=== PATIENT | female | born 1965 | race Caucasian/White ===

== ENCOUNTER 2020-08-10 06:13 | Observation (INO) ==
[~2020-08-10 06:13] MED LIST: Bacitracin 50,000 UNIT, Polymyxin B Sulfate 500,000 UNIT, Sodium Chloride IRRigation 1,... IR ONE; Vancomycin 1,500 MG/265 ML IV.SOLN IVPB ONE
[2020-08-10] MEDS ORDERED: Ondansetron 4 MG/2 ML VIAL IVP PRN ×2 (07:00→15:00)
[2020-08-10] MEDS ORDERED: *HR* HYDROcodone/Acet 5/325 mg TABLET PO PRN ×2 (07:00→15:00)
[2020-08-10] MEDS ORDERED: Neosporin OINT 15 GM TUBE TP ONE (07:06)
[2020-08-10] MEDS ORDERED: Lidocaine -MPF 2% 2 ML VIAL ONE (07:08)
[2020-08-10] MEDS ORDERED: *HR* Succinylcholine 200 MG/10 ML VIAL IVP ONE (07:08)
[2020-08-10] MEDS ORDERED: Ondansetron 4 MG/2 ML VIAL ONE (07:08)
[2020-08-10] MEDS ORDERED: Dexamethasone 4 MG/ML VIAL ONE (07:08)
[2020-08-10] MEDS ORDERED: Lidocaine -MPF 4% 5 ML AMPUL ONE (07:08)
[2020-08-10] MEDS ORDERED: *HR* Rocuronium Bromide 50 MG/5 ML VIAL ONE (07:08)
[2020-08-10] MEDS ORDERED: *HR* Propofol 200 MG/20 ML VIAL IVP ONE (07:08)
[2020-08-10] MEDS ORDERED: *HR* Midazolam HCl 2 MG/2 ML VIAL ONE (07:08)
[2020-08-10] MEDS ORDERED: *HR* FentaNYL (PF) 100 MCG/2 ML VIAL ONE (07:08)
[2020-08-10] MEDS ORDERED: *HR* Remifentanil 1 MG VIAL IVP ONE ×2 (07:11→11:19)
[2020-08-10] MEDS ORDERED: Heparin 1,000 UNITS/500 mL 500 ML ONE (07:26)
[2020-08-10] MEDS: Ringers Solution, Lactated 1,000 ML IVC SCH ×3 (07:38→14:25)
[2020-08-10] MEDS ORDERED: *HR* PHENYLEPHRINE 1,000 MCG/10 ML SYRINGE IVP ONE (08:39)
[2020-08-10] MEDS ORDERED: *HR* Phenylephrine 10 MG/ML VIAL ONE (08:51)
[2020-08-10] MEDS ORDERED: Famotidine 20 MG/2 ML VIAL ONE (10:23)
[2020-08-10] MEDS ORDERED: Acetaminophen IV 1,000 MG/100 ML BAG IVPB ONE ×2 (10:23→11:49)
[2020-08-10] MEDS: Morphine Sulfate 2 MG/ML SYRINGE IVP PRN ×4 (13:10→13:27)
[2020-08-10] MEDS ORDERED: *HR* FentaNYL (PF) 100 MCG/2 ML VIAL IVP PRN (13:32)
[2020-08-10] MEDS ORDERED: *HR* Midazolam HCl 2 MG/2 ML VIAL IVP PRN (13:38)
[2020-08-10] MEDS ORDERED: Ringers Solution, Lactated 1,000 ML IVC SCH (15:00)
[2020-08-10] MEDS ORDERED: Naloxone 0.4 MG/ML INJ IVP PRN (15:00)
[2020-08-10] MEDS: *HR* OxyCODONE Immed Rel 5 MG TABLET PO PRN ×2 (15:53→21:01)
[2020-08-10] MEDS: CeFAZolin 2 GM/120 ML BAG IVPB SCH ×2 (18:25→23:10)
[2020-08-11] MEDS: *HR* OxyCODONE Immed Rel 5 MG TABLET PO PRN ×4 (03:32→18:01)
[2020-08-11] MEDS: Acetaminophen 325 MG TABLET PO PRN ×2 (08:58→20:57)
[2020-08-11] MEDS ORDERED: diazePAM 2 MG TABLET PO PRN (11:49)
[2020-08-11] MEDS: HYDROcodone BIT/Homatropine 5 MG TABLET PO PRN (15:41)
[2020-08-12] MEDS: HYDROcodone BIT/Homatropine 5 MG TABLET PO PRN ×2 (00:43→07:57)
[2020-08-12] MEDS: Acetaminophen 325 MG TABLET PO PRN (03:49)
[2020-08-12 06:49] VITALS: BP 129/75
[2020-08-12] MEDS ORDERED: *HR* HYDROcodone/Acet 10/325 mg TABLET PO ONE (09:16)
== END 2020-08-12 11:00 | disposition home or self-care (01) ==
LOC: SAMDAY 06:13 → 3NENU 06:13
PROVIDERS: ADMIT Orthopaedic Surgery Orthopaedic Surgery of the Spine; ATTEND Orthopaedic Surgery Orthopaedic Surgery of the Spine